=== PATIENT | female | born 1970 | race Caucasian/White ===

== ENCOUNTER → 2016-08-17 | Outpatient (CLI) | payer OTHER ==
[~2016-08-17] MED LIST: ALPR-411 PO; LEVO125T72 PO; RXC5 PO; SERT50TA PO
[2016-08-17 13:53] LABS: THYROID STIMULATING HORMONE 0.115 uIu/ml (0.300-4.500)
== END | disposition home or self-care (01) ==
LOC: C.LAB 11:56
PROVIDERS: ATTEND Family Medicine
DX: E03.9 Hypothyroidism, unspecified (principal)

== ENCOUNTER → 2017-05-06 | Outpatient (CLI) | payer OTHER | END | disposition home or self-care (01) | LOC: C.LAB 08:34 | PROVIDERS: ATTEND Nurse Practitioner Family | DX: E03.9 Hypothyroidism, unspecified (principal) ==

== ENCOUNTER → 2017-07-31 | Outpatient (CLI) | payer OTHER | END | disposition home or self-care (01) | LOC: C.LAB 07:38 | PROVIDERS: ATTEND Nurse Practitioner Family | DX: E03.9 Hypothyroidism, unspecified (principal) ==

== ENCOUNTER 2021-03-21 20:30 | Observation (INO) ==
[2021-03-21 21:58] LABS: Appearance Urine Clear (Clear); Bacteria Urine Automated 1+ (Negative); Blood Urine Trace (Negative); Color Urine Dark Yellow; Epithelial Cell Urine Auto >30 /lpf (0-5); Glucose Urine UA Negative (Negative); Ketones Urine 2+ (Negative); Leukocyte Esterase Urine Negative (Negative); Nitrite Urine Negative (Negative); Protein Urine 1+ (Negative); Specific Gravity Urine 1.024 (1.000-1.030); Urobilinogen Urine Negative (Negative)
[2021-03-21] MEDS ORDERED: SODIUM CHLORIDE 0.9% 1000ML 1,000 ML IV STA (22:01)
[2021-03-21] MEDS ORDERED: MoRPHine SULFATE 4 MG/ML 1 ML CARP\\VIAL IV STA (22:01)
[2021-03-21] MEDS ORDERED: ONDANSETRON INJ 2 MG/ML 2 ML VIAL IV STA (22:01)
[2021-03-21 22:03] LABS: Albumin Globulin Ratio 0.9 (0.9-2); BUN Creatinine Ratio 9.5 (10-20); Bilirubin,Total 0.7 mg/dl (0.2-1); Calcium 9.4 mg/dl (8.5-10.1); Creatinine Clr Calc Pharmacy 60.5 ml/min; Est GFR (African American) 80.8 ml/min; Est GFR (Non-African American) 69.8 ml/min; Globulin 4.5 gm/dl (2.5-4.0); Potassium 4.1 mmol/L (3.5-5.1); Total Protein 8.5 gm/dl (6.4-8.2)
[2021-03-21 22:07] LABS: Bilirubin Urine 1+ (Negative)
[2021-03-21 22:11] LABS: Basophils # (auto) 0.01 K/uL (0-0.2); Basophils % (auto) 0.1 %; Eosinophils # (auto) 0.03 K/uL (0-0.5); Eosinophils % (auto) 0.2 %; Hematocrit (blood only) 46.6 % (37-47); Immature Granulocytes # (auto) 0.02 K/uL (0.00-0.02); Immature Granulocytes % (auto) 0.2 %; Lymphocytes # (auto) 0.96 K/uL (1.2-3.4); Lymphocytes % (auto) 7.9 %; Mean Corpuscular Hemoglobin 33.4 pg (25-34); Mean Corpuscular Hgb Conc 34.3 g/dL (32-36); Mean Corpuscular Volume 97.3 fL (80-100); Mean Platelet Volume 10.9 fL (7.4-10.4); Monocytes # (auto) 0.77 K/uL (0.11-0.59); Monocytes % (auto) 6.4 %; Neutrophils % (auto) 85.2 %; Platelet Count 198 K/uL (130-400); RDW Coefficient of Variation 13.1 % (11.5-14.5); RDW Standard Deviation 46.7 fL (36.4-46.3); Red Blood Count 4.79 M/uL (4.2-5.4); White Blood Count 12.09 K/uL (4.8-10.8)
[2021-03-21 22:17] LABS: Mucus Urine Present (None Prsent)
[2021-03-21] MEDS ORDERED: OPTIRAY 320 100ml IV ONE (22:22)
[2021-03-21 22:32] LABS: Pregnancy Test, Serum Negative (Negative)
[2021-03-21] MEDS ORDERED: cefOXitin 2,000 MG/60 ML BAG IV STA (22:50)
--- NOTE | 2021-03-21 22:57 | History & Physical Report ---
Date of Service March 21, 2021 Assessment & Plan (1) Appendicitis: Plan: Due to the patient's clinical presentation and imaging she will be admitted to the hospital proceeding as follows: Patient has acute appendicitis and will plan on operative intervention with a laparoscopic possible open appendectomy this evening. I discussed the risks, benefits, and alternatives with the patient and she wishes to proceed Keep patient n.p.o. until after procedure Provide analgesics Provide antiemetics Administer antibiotics. The treating clinician emergency department has ordered cefoxitin A Covid test has been ordered and is pending we will follow for the results of this Additional recommendations were made based on operative findings and her clinical course as it unfolds postoperatively History of Present Illness Chief Complaint: Abdominal pain Primary Care Provider: Valorie Hernandez DO This is a 51-year-old female who was in her usual state of health until earlier today she developed abdominal pain. She said the pain originated near her umbilicus and has subsequently shifted to the right lower quadrant. She has had nausea without vomiting. She denies any fevers, shakes, chills. She denies any radiation the pain and she denies any modifying factors. Previous abdominal surgeries can include a umbilical herniorrhaphy. Due to the pain she presented to [facility] In the emergency department she had labs and imaging which independent reviewed. CT scan of the abdomen pelvis showed uncomplicated acute appendicitis with the appendix being dilated inflamed measuring up to 10 mm in diameter. There is periappendiceal fat stranding noted but there is no evidence of rupture. CBC revealed white blood cell count was 12.0. Hemoglobin, hematocrit, and platelet count are within normal range. Chemistry profile showed sodium was 135. Potassium was 4.1. BUN and creatinine were both within the normal range. A test was noted to be negative. A Covid test has been performed and is pending. At the time of my interview the patient did have significant right lower quadrant tenderness but she was in no distress. Allergies Allergy/AdvReac Type Severity Reaction Status Date / Time No Known Drug Allergies Allergy Unknown Verified 03/21/21 21:43 Flu Virus Vaccine AdvReac Severe [place] Palsy Uncoded 03/21/21 21:43 Home Medications Medication Instructions Recorded Confirmed Type levothyroxine 112 mcg tablet 112 mcg PO QAM 11/14/18 03/21/21 History amoxicillin 500 mg tablet 2,000 mg PO ONCE #4 tab 12/29/20 03/21/21 Rx Past Med/Surg History Medical History Anxiety Bursitis LEFT HIP Chronic back pain Common migraine without aura History of hepatitis C > 20 YEARS AGO - TREATED Hypothyroidism PCP monitoring and adjusting medications No pertinent family history Scoliosis Symptoms consistent with irritable bowel syndrome Tendonitis LEFT ELBOW Surgical History History of dilatation and curettage MULTIPLE History of fusion of cervical spine ROM WNL. 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 Beliefs That Will Affect Care: None Current Living Situation: Significant Other Feels Safe at Home: Yes Assistive Devices: Glasses Review of Systems Constitutional: + chills; no fever Eyes: no diplopia Ear, Nose, Mouth, Throat: no ear pain Respiratory: no cough and no dyspnea Cardiovascular: no chest pain Gastrointestinal: + abdominal pain and + nausea; no vomiting Genitourinary: no dysuria Musculoskeletal: no back pain Integumentary: no rash Neurologic: no localized weakness Physical Exam Constitutional: well developed and well nourished; no acute distress Eyes: no conjunctival abnormality ENMT: Ears: no hearing impairment Mouth: no oropharynx abnormality Neck: trachea midline Respiratory: normal respiratory effort, lungs clear to auscultation Cardiovascular: Rate/Rhythm: regular rate and regular rhythm Gastrointestinal (Abdomen): Patient's abdomen is soft and nondistended with hypoactive bowel sounds. Patient did have significant tenderness to palpation in the right lower quadrant over McBurney's point with some rebound tenderness. Musculoskeletal: No gross orthopedic abnormalities, no calf tenderness Skin: no rashes, warm and dry Neurologic: moves all extremities Psychiatric: A+Ox3, euthymic affect Results & Data Results & Data ([facility]) Vital Signs (Past 12 Hours) Vital Signs Temp Pulse Pulse Resp BP BP Pulse Ox 03/21/21 21:47 73 18 119/71 97 03/21/21 21:09 36.5 C 88 18 96/60 L 98 Supervising Physician Co-Signing Physician Notes As per Jeffrey Fuentes physician clinical research assistant Patient started having some abdominal pain yesterday today she slept most of the day the pain progressively became worse Previous abdominal surgeries an open repair of a supraumbilical hernia with primary repair The abdomen is mildly distended with exquisite tenderness in right lower quadrant Patient is still complaining significant abdominal pain although the morphine helped it somewhat Systemic antibiotics on board operative procedure explained to the patient and she is well aware of it 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
--- NOTE | 2021-03-21 23:23 | Emergency Department Note ---
History of Present Illness General Chief complaint: Abdominal Pain Stated complaint: STOMACH PAIN ON RIGHT SIDE Time Seen by Provider: 03/21/21 21:47 History of Present Illness Maximum Pain Intensity: 10 This 51-year-old presents to the ER complaining of lower quadrant pain Location: Right lower quadrant Quality: Painful Severity: Moderate Duration: Today Timing: Today Context: Patient was concerned and came in Modifying factors: better with nothing; worse with activity Patient denies chest pain, dyspnea, vomiting, diarrhea, urinary symptoms, flank pain. No prior abdominal surgeries. Home Medications Medication Instructions Recorded Confirmed Type levothyroxine 112 mcg tablet 112 mcg PO QAM 11/14/18 03/21/21 History amoxicillin 500 mg tablet 2,000 mg PO ONCE #4 tab 12/29/20 03/21/21 Rx Allergies Allergy/AdvReac Type Severity Reaction Status Date / Time No Known Drug Allergies Allergy Unknown Verified 03/21/21 21:43 Flu Virus Vaccine AdvReac Severe [place] Palsy Uncoded 03/21/21 21:43 Past Med/Surg History Medical History Anxiety Bursitis LEFT HIP Chronic back pain Common migraine without aura History of hepatitis C > 20 YEARS AGO - TREATED Hypothyroidism PCP monitoring and adjusting medications No pertinent family history Scoliosis Symptoms consistent with irritable bowel syndrome Tendonitis LEFT ELBOW Surgical History History of dilatation and curettage MULTIPLE History of fusion of cervical spine ROM WNL. History of hernia repair History of liver biopsy > 20 YEARS AGO History of tooth extraction Status post excision of lipoma Family History Grandmother (Maternal) Breast cancer Other No family history of adverse response to anesthesia No pertinent family history Denies family history of Ovarian cancer Colorectal cancer Social History Smoking Status: Current every day smoker Tobacco Type: Cigarettes Cigarettes Per Day: 10 a day; Second Hand Exposure: Yes (parents smoked); Hx Alcohol Use: Yes Alcohol type: beer Hx Substance Use: No Preferred Language: Tajik Communication Ability: Effective Relish Blender Required: No Beliefs That Will Affect Care: None Current Living Situation: Significant Other Feels Safe at Home: Yes Assistive Devices: Glasses Review of Systems A total of 10 systems reviewed and were otherwise negative Physical Exam Vital Signs Vital Signs - 24 hr 03/21/21 21:09 03/21/21 21:47 03/21/21 21:48 Temperature 36.5 C Temperature Source Temporal Artery Scan Pulse Rate 88 Pulse Rate [Radial] 73 Respiratory Rate 18 18 Respiratory Effort / Characteristics Non-Labored Spontaneous Respiratory Depth Normal Respiratory Pattern Regular Blood Pressure 96/60 L Blood Pressure [Left Arm] 119/71 Blood Pressure Mean 72 Blood Pressure Mean [Left Arm] 87 Pulse Oximetry 98 97 Oxygen Delivery Method Room Air Room Air Room Air Oxygen Flow Rate Sepsis Recent Fever Within 48 Hours No Sepsis New/Unexplained Change in Mental Status No Sepsis Action Taken by Nursing No Action Required 03/21/21 22:06 03/21/21 23:02 Temperature Temperature Source Pulse Rate Pulse Rate [Radial] 97 H Respiratory Rate 16 Respiratory Effort / Characteristics Respiratory Depth Respiratory Pattern Blood Pressure Blood Pressure [Left Arm] 112/74 Blood Pressure Mean Blood Pressure Mean [Left Arm] 86 Pulse Oximetry 97 Oxygen Delivery Method Room Air Nasal Cannula Oxygen Flow Rate 2 Sepsis Recent Fever Within 48 Hours Sepsis New/Unexplained Change in Mental Status Sepsis Action Taken by Nursing VITALS: Vitals are noted on the nurse's note and reviewed by myself. Vital signs stable. GENERAL: Pleasant female, in no acute distress, nondiaphoretic, well-developed well-nourished. SKIN: The skin was without rashes, erythema, edema, or bruising. There is no tenting of the skin. Capillary reflex less than 2 seconds. HEAD: Normocephalic atraumatic. EARS: External auditory canals clear, EYES: Pupils equal round and reactive to light and accommodation. Conjunctivae without injection, sclerae without icterus. Extraocular movements intact. NOSE: Patent, turbinates without inflammation or discharge. MOUTH: Mucous membranes moist. Pharynx without erythema or exudate. Uvula midline. Airway patent. Tongue does not deviate. NECK: Supple without nuchal rigidity. No lymphadenopathy. No thyromegaly. Cervical spine is nontender. No JVD. HEART: Regular rate and rhythm LUNGS: Clear to auscultation bilaterally without wheezes, rales or rhonchi. No retractions or accessory muscle use. ABDOMEN: Positive bowel sounds x 4. Normal tympanic percussion. Soft, tender to palpation right lower quadrant, without masses or organomegaly. Reinoso sign negative. No guarding or rebound tenderness. No CVA tenderness MUSCULOSKELETAL: No muscle atrophy, erythema, or edema noted. NEURO: Patient was alert and oriented to person place and time. Normal sensation to light and sharp touch. No focal neurological deficits. Course Administered Medications Cefoxitin Sodium (Mefoxin) 2,000 mg in 60 mls @ 100 mls/hr IV NOW STA Stop: 03/21/21 23:25 Last Admin: 03/21/21 23:10 Dose: 100 mls/hr Documented by: [id number] Discontinued Medications Sodium Chloride (Nss 1000ml) 1,000 mls @ 999 mls/hr IV .Q1H1M STA Stop: 03/21/21 23:01 Last Admin: 03/21/21 22:11 Dose: 999 mls/hr Documented by: [id number] Ioversol (Optiray 320 100ml) 77 ml IV ONCE ONE Stop: 03/21/21 22:23 Last Admin: 03/21/21 22:24 Dose: 77 ml Documented by: [id number] Morphine Sulfate (Morphine Sulfate 4 Mg/Ml 1 Ml Carp\Vial) 4 mg IV NOW STA Stop: 03/21/21 22:02 Last Admin: 03/21/21 22:11 Dose: 4 mg Documented by: [id number] Ondansetron HCl (Ondansetron Inj 2 Mg/Ml 2 Ml Vial) 4 mg IV NOW STA Stop: 03/21/21 22:02 Last Admin: 03/21/21 22:11 Dose: 4 mg Documented by: [id number] Medical Decision Making Medical Records Attestation: I reviewed the patient's medical records. Home Medications Current Medication List: was personally reviewed by pr Laboratory Data Attestation: I reviewed the patient's lab results. Result diagrams: 03/21/21 21:30 03/21/21 21:30 Lab Results 03/21/21 03/21/21 03/21/21 Range/Units 21:30 21:30 21:30 WBC 12.09 H (4.8-10.8) K/uL RBC 4.79 (4.2-5.4) M/uL Hgb 16.0 (12.0-16.0) g/dL Hct 46.6 (37-47) % MCV 97.3 (80-100) fL MCH 33.4 (25-34) pg MCHC 34.3 (32-36) g/dL RDW Std Deviation 46.7 H (36.4-46.3) fL RDW Coeff of Mami 13.1 (11.5-14.5) % Plt Count 198 (130-400) K/uL MPV 10.9 H (7.4-10.4) fL Immature Gran % (Auto) 0.2 % Neut % (Auto) 85.2 % Lymph % (Auto) 7.9 % [place] % (Auto) 6.4 % Eos % (Auto) 0.2 % Baso % (Auto) 0.1 % Neut # (Auto) 10.30 H (1.4-6.5) K/uL Lymph # (Auto) 0.96 L (1.2-3.4) K/uL [place] # (Auto) 0.77 H (0.11-0.59) K/uL Eos # (Auto) 0.03 (0-0.5) K/uL Baso # (Auto) 0.01 (0-0.2) K/uL Immature Gran # (Auto) 0.02 (0.00-0.02) K/uL Sodium 135 L (136-145) mmol/L Potassium 4.1 (3.5-5.1) mmol/L Chloride 100 (98-107) mmol/L Carbon Dioxide 29 (21-32) mmol/L Anion Gap 5.0 (3-11) BUN 9 (7-18) mg/dl Creatinine 0.94 (0.6-1.2) mg/dl Est Cr Clr Drug Dosing 60.5 ml/min Est GFR ( Amer) 80.8 ml/min Est GFR (Non-Af Amer) 69.8 ml/min BUN/Creatinine Ratio 9.5 L (10-20) Glucose 122 H (70-99) mg/dl Calcium 9.4 (8.5-10.1) mg/dl Total Bilirubin 0.7 (0.2-1) mg/dl AST 18 (15-37) U/L ALT 19 (12-78) U/L Alkaline Phosphatase 80 (45-117) U/L Total Protein 8.5 H (6.4-8.2) gm/dl Albumin 4.0 (3.4-5.0) gm/dl Globulin 4.5 H (2.5-4.0) gm/dl Albumin/Globulin Ratio 0.9 (0.9-2) Lipase 104 (73-393) U/L HCG, Qual (Negative) Specimen Hemolysis Urine Color Dark Yellow Urine Appearance Clear (Clear) Urine pH 6.0 (4.5-7.5) Ur Specific [place] 1.024 (1.000-1.030) Urine Protein 1+ H (Negative) Urine Glucose (UA) Negative (Negative) Urine Ketones 2+ H (Negative) Urine Blood Trace H (Negative) Urine Nitrite Negative (Negative) Urine Bilirubin 1+ H (Negative) Urine Urobilinogen Negative (Negative) Ur Leukocyte Esterase Negative (Negative) Urine WBC (Auto) 1-5 (0-5) /hpf Urine RBC (Auto) 5-10 H (0-4) /hpf U Hyaline Cast (Auto) 1-5 (0-5) /lpf U Epithel Cells (Auto) >30 H (0-5) /lpf Urine Bacteria (Auto) 1+ H (Negative) Urine Mucus Present A (None Prsent) COVID-19 Eval Order 03/21/21 03/21/21 Range/Units 21:30 23:02 WBC (4.8-10.8) K/uL RBC (4.2-5.4) M/uL Hgb (12.0-16.0) g/dL Hct (37-47) % MCV (80-100) fL MCH (25-34) pg MCHC (32-36) g/dL RDW Std Deviation (36.4-46.3) fL RDW Coeff of Mami (11.5-14.5) % Plt Count (130-400) K/uL MPV (7.4-10.4) fL Immature Gran % (Auto) % Neut % (Auto) % Lymph % (Auto) % [place] % (Auto) % Eos % (Auto) % Baso % (Auto) % Neut # (Auto) (1.4-6.5) K/uL Lymph # (Auto) (1.2-3.4) K/uL [place] # (Auto) (0.11-0.59) K/uL Eos # (Auto) (0-0.5) K/uL Baso # (Auto) (0-0.2) K/uL Immature Gran # (Auto) (0.00-0.02) K/uL Sodium (136-145) mmol/L Potassium (3.5-5.1) mmol/L Chloride (98-107) mmol/L Carbon Dioxide (21-32) mmol/L Anion Gap (3-11) BUN (7-18) mg/dl Creatinine (0.6-1.2) mg/dl Est Cr Clr Drug Dosing ml/min Est GFR ( Amer) ml/min Est GFR (Non-Af Amer) ml/min BUN/Creatinine Ratio (10-20) Glucose (70-99) mg/dl Calcium (8.5-10.1) mg/dl Total Bilirubin (0.2-1) mg/dl AST (15-37) U/L ALT (12-78) U/L Alkaline Phosphatase (45-117) U/L Total Protein (6.4-8.2) gm/dl Albumin (3.4-5.0) gm/dl Globulin (2.5-4.0) gm/dl Albumin/Globulin Ratio (0.9-2) Lipase (73-393) U/L HCG, Qual Negative (Negative) Specimen Hemolysis Urine Color Urine Appearance (Clear) Urine pH (4.5-7.5) Ur Specific [place] (1.000-1.030) Urine Protein (Negative) Urine Glucose (UA) (Negative) Urine Ketones (Negative) Urine Blood (Negative) Urine Nitrite (Negative) Urine Bilirubin (Negative) Urine Urobilinogen (Negative) Ur Leukocyte Esterase (Negative) Urine WBC (Auto) (0-5) /hpf Urine RBC (Auto) (0-4) /hpf U Hyaline Cast (Auto) (0-5) /lpf U Epithel Cells (Auto) (0-5) /lpf Urine Bacteria (Auto) (Negative) Urine Mucus (None Prsent) COVID-19 Eval Order Covid19 at [facility] Imaging Data Attestation: I personally reviewed and interpreted this imaging study as follows: MDM Narrative Prior records/ancillary studies reviewed. Triage Nursing notes reviewed. Additional history obtained from family. The patient's history was concerning for abdominal pain. Differential diagnosis: Etiologies such as appendicitis, diverticulitis, PUD, biliary pathology, UTI, pancreatitis, obstruction, mesenteric ischemia, aortic pathology, infections, inflammatory bowel disease, renal colic, as well as others were entertained. Physical examination findings: As above. ER treatment provided: An order was placed for continuous cardiac monitoring. The monitor shows a rate of 60-1 20 with a sinus rhythm. IV fluid, morphine, Zofran Mefoxin On reassessment the patient felt better. Diagnostics interpreted by me: The labs revealed leukocytosis Imaging studies: Preliminary Findings Only See Final Report For Complete Findings CT ABDOMEN & PELVIS With Contrast: Uncomplicated acute appendicitis. Dilated and inflamed appendix measures up to 10 mm in diameter. Periappendiceal fat stranding and fluid without free air or abscess. Urinary bladder wall thickening, cystitis or incomplete distention. Correlate with urinalysis. Liver, gallbladder, pancreas, spleen, adrenal glands are unremarkable. Symmetric renal enhancement. No hydronephrosis. Uterus is unremarkable. No bowel obstruction. Thoracolumbar scoliosis and spondylosis. Osteopenia. No acute osseous findings. Radiologist: Janet Son M.D. Study ready at 22:34 and initial results transmitted at 22:36 Communications: Clear Time Type Notes 03/21/21 22:48 Call Doctor Regarding Appendicitis, called Dr. Temple on 03/21 22:48 (-04:00) Consultation: A consultation was placed with the surgical KATHY Jeffrey. The case was discussed and diagnostics were reviewed. The patient was evaluated in the ER for further treatment. Exam and history seem consistent with acute appendicitis. Surgery will evaluate. Patient was admitted to their service. Patient was started on antibiotics. By the evaluation outlined above emergent etiologies such as diverticulitis, PUD, biliary pathology, UTI, pancreatitis, obstruction, mesenteric ischemia, aortic pathology, inflammatory bowel disease, renal colic, as well as others were deemed relatively unlikely. The pt informed about the findings as listed above. All questions were answered and pleased with the treatment. The chart was completed utilizing [employer] voice recognition software. Grammatical errors, random word insertions, pronoun errors, and incomplete sentences are an occassional consequence of this system due to software limitations, ambient noise, and hardware issues. Any formal questions or concerns about the content, text, or information contained within the body of this dictation should be directly addressed to the physician operations assistant for clarification. Impression & Plan Acute appendicitis Discharge Plan Visit Data Chief Complaint: Abdominal Pain Stated Complaint: STOMACH PAIN ON RIGHT SIDE ED Provider: Dominga Temple ED Midlevel Provider: Karen Mast Discharge Problem: Acute appendicitis Patient Disposition: Being Evaluated by Surgeon Condition: Good Forms Stand Alone Forms: [facility] Prescriptions Prescriptions: No Action amoxicillin 500 mg tablet 2,000 mg PO ONCE Qty: 4 RF: 2 levothyroxine 112 mcg Tablet 112 mcg PO QAM RF: 0 Referrals Referrals: Valorie Hernandez DO [Primary Care Provider] -
--- NOTE | 2021-03-21 23:54 | Anesthesiology Consultation ---
Date of Service March 21, 2021 Assessment & Plan (1) Encounter for pre-operative examination: Chart Review Chart Review: Acceptable Risk for Surgery and Patient NOT seen in Pre Admission Testing Consults Requested none History Height/Weight Height: 5 ft 4 in Weight: 56.1 kg Allergies Allergy/AdvReac Type Severity Reaction Status Date / Time No Known Drug Allergies Allergy Unknown Verified 03/21/21 21:43 Flu Virus Vaccine AdvReac Severe [place] Palsy Uncoded 03/21/21 21:43 Medications Home Medications Medication Instructions Recorded Confirmed Last Taken levothyroxine 112 mcg tablet 112 mcg PO QAM 11/14/18 03/21/21 05/30/20 amoxicillin 500 mg tablet 2,000 mg PO ONCE #4 tab 12/29/20 03/21/21 Unknown Past Medical History Medical History Anxiety Bursitis LEFT HIP Chronic back pain Common migraine without aura History of hepatitis C > 20 YEARS AGO - TREATED Hypothyroidism PCP monitoring and adjusting medications No pertinent family history Scoliosis Symptoms consistent with irritable bowel syndrome Tendonitis LEFT ELBOW Past Family History Family History Grandmother (Maternal) Breast cancer Other No family history of adverse response to anesthesia No pertinent family history Denies family history of Ovarian cancer Colorectal cancer Past Surgical History Surgical History History of dilatation and curettage MULTIPLE History of fusion of cervical spine ROM WNL. History of hernia repair History of liver biopsy > 20 YEARS AGO History of tooth extraction Status post excision of lipoma Social History Smoking Status: Current every day smoker tobacco type: cigarettes Smoking cigarettes per day: 10 a day Hx Alcohol Use: Yes Alcohol type: beer alcohol intake frequency: a few times a week Hx Substance Use: No substance use type: does not use Physical Exam Vital Signs Last Vital Signs Temp 36.5 C 03/21/21 21:09 Pulse 97 H 03/21/21 23:02 Resp 16 03/21/21 23:02 BP 112/74 03/21/21 23:02 Pulse Ox 97 03/21/21 23:02 Testing Laboratory Results 03/21/21 21:30 03/21/21 21:30 Urine Color Dark Yellow 03/21/21 21:30 Urine Appearance Clear (Clear) 03/21/21 21:30 Urine pH 6.0 (4.5-7.5) 03/21/21 21:30 Ur Specific [place] 1.024 (1.000-1.030) 03/21/21 21:30 Urine Protein 1+ (Negative) H 03/21/21 21:30 Urine Glucose (UA) Negative (Negative) 03/21/21 21: Urine Ketones 2+ (Negative) H 03/21/21 21: Urine Nitrite Negative (Negative) 03/21/21 21:30 Ur Leukocyte Esterase Negative (Negative) 03/21/21 21:30 Urine WBC (Auto) 1-5 /hpf (0-5) 03/21/21 21:30 Urine RBC (Auto) 5-10 /hpf (0-4) H 03/21/21 21:30 U Hyaline Cast (Auto) 1-5 /lpf (0-5) 03/21/21 21:30 U Epithel Cells (Auto) >30 /lpf (0-5) H 03/21/21 21:30 Urine Bacteria (Auto) 1+ (Negative) H 03/21/21 21:30 Electrocardiogram Date: 05/11/20 Findings: + NSR @ (72) Incomplete right bundle branch block Borderline ECG When compared with ECG of 02-FEB-2019 09:52, No significant change was found
[2021-03-22] MEDS ORDERED: ROCURONIUM BROMIDE 10 MG/ML 5 ML VIAL IV ONE (00:05)
[2021-03-22] MEDS ORDERED: DEXAMETHASONE SOD INJ 4 MG/ML VIAL ONE (00:05)
[2021-03-22] MEDS ORDERED: MIDAZOLAM HCL 1 MG/ML 2ML VIAL ONE (00:05)
[2021-03-22] MEDS ORDERED: ONDANSETRON INJ 2 MG/ML 2 ML VIAL ONE (00:05)
[2021-03-22] MEDS ORDERED: LIDOCAINE 2% 2 ML VIAL/AMP(20MG/ML) INFIL ONE (00:05)
[2021-03-22] MEDS ORDERED: SUCCINYLCHOLINE CHLORIDE 20 MG/ML 10 ML VIAL IV ONE (00:05)
[2021-03-22] MEDS ORDERED: PROPOFOL IV EMULSION 10 MG/ML 20 ML VIAL IV ONE (00:05)
[2021-03-22] MEDS ORDERED: fentaNYL citrate 100 MCG/2 ML VIAL ONE ×3 (00:06→02:03)
[2021-03-22] MEDS ORDERED: SUGAMMADEX SODIUM 200 MG/2 ML VIAL IV ONE (00:11)
[2021-03-22] MEDS ORDERED: LIDOCAINE/EPINEPHRINE 1% 20 ML VIAL ONE (00:19)
--- NOTE | 2021-03-22 01:30 | Post Operative Brief Note ---
PG Immediate Post Op with CF Date of Surgery March 22, 2021 Pre & Post Diagnosis Operation Date: 03/21/21 23:50 Pre-Op Diagnosis: Acute Appendicitis Post-Op Diagnosis: Acute Appendicitis I identified the patient and participated in the time-out.: Yes Procedure Operation Date: 03/21/21 23:50 Actual Procedures p Laparoscopic Appendectomy(Not Applicable) - Yohan Faulkner MD, FACS Surgeon Yohan Faulkner MD, FACS Supervisor [employer] [email or web address] [email or web address] Estimated Blood Loss 5 Findings Consistent with Post-Op Diagnosis Specimens Specimen Description: A. Appendix
--- NOTE | 2021-03-22 01:44 | Operative Report ---
Post Operative Report Pre & Post Diagnosis Operation Date: 03/21/21 23:50 Pre-Op Diagnosis: Acute Appendicitis Post-Op Diagnosis: Acute Appendicitis I identified the patient and participated in the time-out.: Yes Procedure Operation Date: 03/21/21 23:50 Actual Procedures p Laparoscopic Appendectomy(Not Applicable) - Yohan Faulkner MD, FACS The patient was brought into the operating theater general endotracheal anesthesia systemic and biotics have been given abdomen was prepped Betadine solution properly draped timeout was had patient identified made an incision through the previous scar umbilical area where she had an umbilical hernia repair dissected down to the abdominal wall grasped the fascia which Ethibond sutures can still be seen we opened the fascia between 2 Natacha clamps 0 Vicryl suture was used as a stay suture we entered the peritoneal cavity and direct visualization a 5 mm trocar was inserted stay sutures help the pneumoperitoneum followed by the camera which see the patient has some inflammatory process in the right lower quadrant seemed like some moderate hemic tissue was around the cecum not see the appendix at this time therefore on direct visualization a 5 mm right upper quadrant port was inserted with preemptive local analgesic at this point we were able to enter the move the cecum and identified could be an acute inflamed appendix going down towards rectum cecal done in the gutter did not have any free fluid appreciated I can see some fibrinous exudate of the appendix at this point we converted the 5 mm trocar in the supraumbilical area 12 mm pneumoperitoneum was again maintained with the stay sutures and under direct visualization we placed a 5 mm left lower quadrant and was placed in that area with the epigastric and right upper quadrant trochars were able to elevate the appendix with the tip was inflamed serosal fibrous tissue was appreciated once we elevated this we were able to see the takeoff from the cecum we created a window between the cecum the appendix and the mesoappendix using an application of the purple ROHIT were able to divide the appendix at the cecum and I used another application of the ROHIT the cason to divide the mesoappendix hemostasis was satisfactory was minimal slight oozing from the state touched with the cautery at 25 coag the appendix was placed in an Endopouch taken out intact through the supraumbilical port the area was then suctioned out hemostasis as stated there was no evidence of any free intra-abdominal fluid this was excellent therefore on direct visualization removed left lower quadrant right upper quadrant trocar and left the trocar we used fascial sutures with #0 PDS interrupted [id number] to close the fascia and 4-0 Monocryl was used subcutaneously in all 3 port sites Steri-Strips applied procedure was tolerated well by the patient estimate blood loss 5 cc Addendum Jeffrey Fuentes physician mortgage loan assistant was present throughout the case and h elped the retraction exposure and camera work Addendum spoke with her significant other Bernardino in waiting area Surgeon Yohan Faulkner MD, FACS [employer] Y[employer] Dyer lupe [email or web address] Estimated Blood Loss 5 Findings Consistent with Post-Op Diagnosis Acute nonruptured appendix Specimens Appendix Description of Procedure merda I attest to the content of the Intraoperative Record and any orders documented therein. Any exceptions are noted below.
[2021-03-22] MEDS ORDERED: ePHEDrine sulfate 50 MG/ML AMP IV PRN (02:00)
[2021-03-22] MEDS ORDERED: ATROPINE SULFATE 0.1 MG/ML 10ML SYR IV PRN (02:00)
[2021-03-22] MEDS ORDERED: MoRPHine SULFATE 10 MG/ML CARP/VIAL IV PRN (02:00)
[2021-03-22] MEDS ORDERED: ONDANSETRON INJ 2 MG/ML 2 ML VIAL IV PRN ×2 (02:00→02:55)
[2021-03-22] MEDS ORDERED: PROMETHAZINE HCL 12.5 MG in SODIUM CHLORIDE 0.9% 50 ML IV PRN (02:00)
[2021-03-22] MEDS: fentaNYL citrate 100 MCG/2 ML VIAL IV PRN ×2 (02:04→02:10)
[2021-03-22] MEDS ORDERED: ALBUTEROL HFA INHALER 8.5 GM ONE (02:11)
[2021-03-22] MEDS ORDERED: oxyCODONE HCL IR 5 MG TAB (IMMEDIATE RELEASE) PO PRN (02:55)
[2021-03-22] MEDS ORDERED: MoRPHine SULFATE 4 MG/ML 1 ML CARP\\VIAL IV PRN (02:55)
[2021-03-22] MEDS ORDERED: LACTATED RINGER'S 1,000 ML IV SCH (03:00)
--- NOTE | 2021-03-22 03:07 | Anesthesiology Progress Note ---
Date of Service March 22, 2021 Anesthesia Post Procedure Vital Signs Vital Signs: Temp Pulse Pulse Pulse Pulse Resp BP 03/22/21 02:55 36.8 C 89 16 03/22/21 02:30 37.9 C H 87 16 03/22/21 02:25 37.9 C H 03/22/21 02:20 85 16 03/22/21 02:10 84 16 03/22/21 02:00 87 20 03/22/21 01:54 37.5 C 91 H 20 03/22/21 00:05 93 H 16 03/21/21 23:02 97 H 16 03/21/21 21:47 73 18 03/21/21 21:09 36.5 C 88 18 96/60 L BP BP Pulse Ox 03/22/21 02:55 94/58 L 96 03/22/21 02:30 95/62 L 96 03/22/21 02:25 03/22/21 02:20 105/55 L 94 03/22/21 02:10 103/60 96 03/22/21 02:00 105/65 96 03/22/21 01:54 121/69 95 03/22/21 00:05 108/64 96 03/21/21 23:02 112/74 97 03/21/21 21:47 119/71 97 03/21/21 21:09 98 Pain Intensity Abdomen: Pain Intensity: 3 Transfer of Care Handoff Completed per policy Notes Mental Status: alert / awake / arousable and participated in evaluation Patient Amnestic to Procedure: Yes Nausea / Vomiting: adequately controlled Pain: adequately controlled Airway Patency, RR, SpO2: stable & adequate BP & HR: stable & adequate Hydration State: stable & adequate Anesthetic Complications: no major complications apparent and Pt Satisfied with anesthetic care Notes: Pt informed that bridion was given and that she should use a backup control method if she takes oral contraceptives. Pt understands and states that she is post-menopausal. No other anesthetic complications or concerns.
[2021-03-22] MEDS: ACETAMINOPHEN 1,000 MG/100 ML VIAL IV SCH ×2 (03:42→10:24)
[2021-03-22] MEDS: cefOXitin 2,000 MG in DEXTROSE 5% 50 ML IV SCH ×2 (06:02→11:43)
[2021-03-22] MEDS ORDERED: LEVOTHYROXINE SODIUM 112 MCG TABLET PO SCH (06:30)
--- NOTE | 2021-03-22 07:46 | CT Scan Report ---
CT abd pelvis IV con only CLINICAL INDICATION: MN ^C4 CTR ^lower abd pain. TECHNIQUE: Helical axial images of the abdomen and pelvis were obtained and displayed at 5 and 1 mm i ntervals. Automated dose lowering techniques and/or adjustment according to patient size were utilize d for this exam. This exam was performed with intravenous contrast. COMPARISON: None available at the time of this dictation. FINDINGS: Lower chest: No acute abnormality Liver: Unremarkable. No focal lesions are seen. Gallbladder and biliary tree: No calcified gallstones. Normal caliber wall. No intra- or extrahepatic biliary ductal dilation. Pancreas: Unremarkable, no focal lesions. Spleen: Unremarkable. Adrenals: Unremarkable. Kidneys and ureters: Unremarkable. Bladder: Bladder is under distended but the wall appears thickened. Bowel: There is distention and thickening of the appendix, measuring up to 14 mm in diameter, with garland rrounding fat stranding. Lymph nodes Retroperitoneal: Unremarkable. Mesenteric: Unremarkable. Pelvic: Unremarkable. Reproductive organs: Unremarkable. Peritoneum: Normal Vessels: Atherosclerotic calcifications are seen. Abdominal wall: Unremarkable. Bones: Degenerative changes and levoscoliosis noted. IMPRESSION: 1. Findings are compatible with acute appendicitis without evidence of abscess or perforation. 2. Possible bladder wall thickening may be secondary to adjacent inflammation, although cystitis can not be entirely excluded. Recommend correlation with urinalysis. ACT 112: Negative or not required by law. Electronically signed by: Kamran Hernadez M.D. 03/22/2021 7:45 AM
--- NOTE | 2021-03-22 08:25 | Surgery Progress Note ---
Date of Service March 22, 2021 Assessment & Plan (1) Appendicitis: Plan: Due to the patient's clinical presentation and imaging she will be admitted to the hospital proceeding as follows: Patient has acute appendicitis and will plan on operative intervention with a laparoscopic possible open appendectomy this evening. I discussed the risks, benefits, and alternatives with the patient and she wishes to proceed Keep patient n.p.o. until after procedure Provide analgesics Provide antiemetics Administer antibiotics. The treating clinician emergency department has ordered cefoxitin A Covid test has been ordered and is pending we will follow for the results of this Additional recommendations were made based on operative findings and her clinical course as it unfolds postoperatively Plan: Operative findings was discussed with the patient we will reevaluate later this morning or early afternoon if she is comfortable tolerating a diet and minimal discomfort she can be discharged we will keep her on oral antibiotics Augmentin for approximately 5 days All questions were answered Admission and Anticipated Discharge Date Admission Date: March 22, 2021 Subjective Patient feels much better yesterday she still has some abdominal discomfort as expected's only 6 hours since her surgery will acutely inflamed appendix which was done laparoscopically She is able to tolerate liquids Physical Exam Physical Exam: Is alert coherent no distress does not look uncomfortable as she was preoperatively Constitutional: The abdomen softly distended Steri-Strips intact some blood staining at the periumbilical 1 Results & Data ([facility]) Vital Signs (Past 12 Hours) Vital Signs Temp Pulse Pulse Pulse Pulse Resp BP 03/22/21 06:00 60 03/22/21 05:57 36.8 C 63 03/22/21 04:54 36.7 C 64 03/22/21 03:56 36.9 C 79 03/22/21 03:25 36.7 C 78 03/22/21 02:55 36.8 C 89 03/22/21 02:30 37.9 C H 87 03/22/21 02:25 37.9 C H 03/22/21 02:20 85 03/22/21 02:10 84 03/22/21 02:00 87 03/22/21 01:54 37.5 C 91 H 03/22/21 00:05 93 H 03/21/21 23:02 97 H 03/21/21 21:47 73 03/21/21 21:09 36.5 C 88 18 96/60 L BP BP Pulse Ox 03/22/21 06:00 99/58 L 99 03/22/21 05:57 89/55 L 95 03/22/21 04:54 97/61 L 94 03/22/21 03:56 103/67 97 03/22/21 03:25 103/68 97 03/22/21 02:55 94/58 L 96 03/22/21 02:30 95/62 L 96 03/22/21 02:25 03/22/21 02:20 105/55 L 94 03/22/21 02:10 103/60 96 03/22/21 02:00 105/65 96 03/22/21 01:54 121/69 95 03/22/21 00:05 108/64 96 03/21/21 23:02 112/74 97 03/21/21 21:47 119/71 97 03/21/21 21:09 98 PG Care Time/CCT Total # of Minutes Spent Total Time Spent with Patient: Total time spent is greater than 50% in coordinat ion of care (as documented) at patient's floor/unit and/or counseling patient: Coding Level of Care Code None Diagnoses Appendicitis K37
--- NOTE | 2021-03-29 05:37 | Discharge Summary ---
Date of Service March 29, 2021 Admission HPI Per Admitting Provider This is a 51-year-old female who was in her usual state of health until earlier today she developed abdominal pain. She said the pain originated near her umbilicus and has subsequently shifted to the right lower quadrant. She has had nausea without vomiting. She denies any fevers, shakes, chills. She denies any radiation the pain and she denies any modifying factors. Previous abdominal surgeries can include a umbilical herniorrhaphy. Due to the pain she presented to [facility] In the emergency department she had labs and imaging which independent reviewed. CT scan of the abdomen pelvis showed uncomplicated acute appendicitis with the appendix being dilated inflamed measuring up to 10 mm in diameter. There is periappendiceal fat stranding noted but there is no evidence of rupture. CBC revealed white blood cell count was 12.0. Hemoglobin, hematocrit, and platelet count are within normal range. Chemistry profile showed sodium was 135. Potassium was 4.1. BUN and creatinine were both within the normal range. A test was noted to be negative. A Covid test has been performed and is pending. At the time of my interview the patient did have significant right lower quadrant tenderness but she was in no distress. Discharge Data Procedures Performed Operation Date: 03/21/21 23:50 Actual Procedures p Laparoscopic Appendectomy(Not Applicable) - Yohan Faulkner MD, [facility] Hospital Course (1) Acute appendicitis: Patient was admitted on the day of admission secondary to abdominal pain in the right lower quadrant. CT scan of the abdomen and pelvis showed findings consistent with acute appendicitis. For this findings patient was taken to the operating room and underwent an uncomplicated laparoscopic appendectomy. Patient was discharged home on postop day #1. She was provided with appropriate wound care, diet, and activity instructions. She was told to follow-up with Dr. Colin White in the office in approximately 1 to 2 weeks.
== END 2021-03-22 14:30 | disposition home or self-care (01) ==
LOC: ED 20:30 → 3E 03-22 00:27 → OR 03-22 00:27
DX: Z88.7 Allergy status to serum and vaccine; F17.210 Nicotine dependence, cigarettes, uncomplicated; E03.9 Hypothyroidism, unspecified; Z79.890 Hormone replacement therapy; K35.33 Acute appendicitis with perforation, localized peritonitis, and gangrene, with abscess; M54.9 Dorsalgia, unspecified; G89.29 Other chronic pain; Z88.1 Allergy status to other antibiotic agents